=== PATIENT | female | born 1990 | race Caucasian/White ===

== ENCOUNTER 2019-04-25 07:00 | Emergency (ER) | payer OTHER ==
[~2019-04-25] VITALS: Ht 162.6 cm; Wt 53.6 kg
[2019-04-25 07:43] LABS: BASOPHILS # (AUTO) 0.13 x10^3/uL (0-0.1); BASOPHILS % (AUTO) 1 % (0-1); EOSINOPHILS % (AUTO) 4 % (1-7); LYMPHOCYTES # (AUTO) 1.87 x10^3/uL (1-3.4); LYMPHOCYTES % (AUTO) 21 % (22-44); MD NO; MEAN CORPUSCULAR HEMOGLOBIN 30.2 pg (27.0-34.8); MEAN CORPUSCULAR HGB CONC 33.3 g/dL (32.4-35.8); MEAN CORPUSCULAR VOLUME 90.6 fL (80-100); MEAN PLATELET VOLUME 8.3 fL (7.4-10.4); MONOCYTES # (AUTO) 0.71 x10^3/uL (0.2-0.8); MONOCYTES % (AUTO) 8 % (2-9); NEUTROPHILS # (AUTO) 5.79 x10^3/uL (1.8-6.8); NEUTROPHILS % (AUTO) 66 % (42-75); PLATELET COUNT 391 x10^3/uL (130-400); RED BLOOD COUNT 4.14 x10^6/uL (3.82-5.3); RED CELL DISTRIBUTION WIDTH 13.2 % (9.6-15.2)
[2019-04-25 07:51] LABS: ANION GAP 7 mmol/L (5-15); CALCIUM 8.9 mg/dL (8.5-10.1); CHLORIDE 107 mmol/L (98-107)
[2019-04-25 08:02] LABS: CREATININE 0.86 mg/dL (0.55-1.02)
[2019-04-25 08:21] VITALS: BP 97/62
--- NOTE | 2019-04-25 08:21 | NUR ---
PT GIVEN RX AND DC INSTRUCTIONS
== END 2019-04-25 08:24 ==
LOC: ED 08:15
DX: R05 Cough (principal); R50.9 Fever, unspecified; Z98.890 Other specified postprocedural states; Z88.6 Allergy status to analgesic agent
CPT/HCPCS: 36415; 71046; 80048; 84443; 85025; 99284